=== PATIENT | female | born 1950 | race Caucasian/White ===

== ENCOUNTER 2018-05-02 11:57 | Day surgery (SDC) | payer MEDICARE, OTHER ==
[~2018-05-02] VITALS: Ht 162.6 cm; Wt 78.6 kg
[2018-05-02 12:56] VITALS: Ht 162.6 cm; Wt 78.6 kg
[2018-05-02] MEDS ORDERED: METHYLPHENIDATE (13:07)
[2018-05-02] MEDS ORDERED: ESCITALOPRAM (13:07)
[2018-05-02] MEDS ORDERED: RANITIDINE (13:07)
[2018-05-02] MEDS ORDERED: OCREVUS (13:07)
[2018-05-02] MEDS ORDERED: BELSOMRA (13:07)
[2018-05-02] MEDS ORDERED: MULTIVITAMIN (13:07)
[2018-05-02] MEDS ORDERED: CALCIUM (13:07)
[2018-05-02] MEDS ORDERED: VITAMIN C (13:07)
[2018-05-02] MEDS ORDERED: LEVOTHYROXINE (13:07)
[2018-05-02] MEDS ORDERED: AMPYRA (13:07)
[2018-05-02] MEDS ORDERED: VITAMIN D (13:08)
[2018-05-02 13:19] VITALS: BP 124/67; PULSE 85; RESP 15
--- NOTE | 2018-05-02 14:17 | PREAC ---
Date/Time of Note Date/Time of Note DATE: 05/02/18 TIME: 14:16 Anesthesia Eval and Record Evaluation Time Pre-Procedure Interview DATE: 05/02/18 TIME: 14:16 Age 67 Sex female NPO: 8 hrs Preoperative diagnosis screening Planned procedure colonocopy Past Medical History Past Medical History: Includes Neuro: Other (MS) Musculoskeletal: Osteoarthritis GI: GERD, Obesity Surgery & Anesthesia Issues No known issue Meds Anticoagulation: No Beta Ritesh within 24 hr: No Reason Beta Ritesh not given: Pt. not on B-Ritesh Reported Medications [Vitamin D] No Conflict Check 05/02/18 [Multivitamin] No Conflict Check 05/02/18 [Belsomra] No Conflict Check 05/02/18 [Calcium] No Conflict Check 05/02/18 [Vitamin C] No Conflict Check 05/02/18 [Ranitidine] No Conflict Check 05/02/18 [Escitalopram] No Conflict Check 05/02/18 [Ampyra] No Conflict Check 05/02/18 [Methylphenidate] No Conflict Check 05/02/18 [Levothyroxine] No Conflict Check 05/02/18 [Ocrevus] No Conflict Check 05/02/18 Meds reviewed: Yes Allergies Coded Allergies: methylprednisolone (Verified Adverse Reaction, Severe, THROAT SWELLING, 05/02/18) Allergies Reviewed: Yes Labs/Studies Labs Reviewed: Reviewed by anesthesiologist test: N/A Studies: ECG (n/a), CXR (n/a) Pre-procedure Exam Last vitals Vital Signs Date Temp Pulse Resp B/P (MAP) Pulse Ox O2 O2 Flow FiO2 Time Delivery Rate 05/02/18 85 15 124/67 97 Room Air 13:19 (86) Airway: Adequate mouth opening Mallampati: Mallampati I Teeth: Normal Lung: Normal Heart: Normal ASA Physical Status ASA physical status: 2 Emergency: None Planned Anesthetic General/MAC: MAC Planned Pain Management Parenteral pain med Pre-operative Attestations Prior to commencing anesthesia and surgery, the patient was re-evaluated, there was verification of: *The patient's identity *The results of appropriate recent lab work and preoperative vital signs *The above evaluation not changing prior to induction *Anesthetic plan, risk benefits, alternative and complications discussed with patient/family; questions answered; patient/family understands, accepts and wishes to proceed. HIRAM DRAKE MD May 02, 2018 14:17
[2018-05-02] MEDS ORDERED: PROPOFOL 20 ML ONE (14:50)
[2018-05-02] MEDS ORDERED: FENTAnyl 50 MCG/ML VIAL ONE (14:50)
[2018-05-02 15:55] VITALS: BP 114/64; RESP 15
--- NOTE | 2018-05-02 20:29 | PAC ---
Date/Time of Note Date/Time of Note DATE: 05/02/18 TIME: 20:29 Post-Anesthesia Notes Post-Anesthesia Note Last documented vital signs Vital Signs Date Temp Pulse Resp B/P (MAP) Pulse Ox O2 O2 Flow FiO2 Time Delivery Rate 05/02/18 98.1 85 15 114/64 96 Room Air 15:55 (81) 05/02/18 85 13:19 Activity: WNL Respiratory function: WNL Cardiovascular function: WNL Mental status: Baseline Pain reasonably controlled: Yes Hydration appropriate: Yes Nausea/Vomiting absent: No HIRAM DRAKE MD May 02, 2018 20:29
== END 2018-05-02 15:47 | disposition home or self-care (01) ==
LOC: GIL 11:57
PROVIDERS: ATTEND Internal Medicine Gastroenterology
DX: Z12.11 Encounter for screening for malignant neoplasm of colon (principal); K64.8 Other hemorrhoids
CPT/HCPCS: G0121; J3010